=== PATIENT | male | born 1995 | race Caucasian/White ===

== ENCOUNTER 2025-04-19 18:49 | Emergency (ER) | payer MEDICAID ==
[~2025-04-19] VITALS: Ht 172.7 cm; Wt 63.5 kg
[2025-04-19 21:22] VITALS: TEMP 98.4
[2025-04-19] MEDS ORDERED: ONDANSETRON HCL/PF 4 MG/2 ML VIAL ONE (22:38)
[2025-04-19] MEDS ORDERED: DICYCLOMINE HCL 10 MG CAPSULE PO ONE (22:38)
[2025-04-19] MEDS: IV LR 1000 ML 1,000 ML IV ONE (22:45)
[2025-04-19] MEDS: DICYCLOMINE HCL 10 MG CAPSULE PO ONE (22:45)
[2025-04-19] MEDS: ONDANSETRON HCL/PF 4 MG/2 ML VIAL IVP ONE (22:45)
[2025-04-19 22:47] VITALS: BP 110/67; O2SAT 100
[2025-04-19 22:52] LABS: PLATELET COUNT (AUTO) 212 K/uL (150-450); RED BLOOD CELL COUNT(AUTO) 4.38 MIL/uL (4.5-6.0); RED CELL DISTRIBUTION WIDTH 13.4 % (11.5-15.0); WHITE BLOOD COUNT (AUTO) 5.7 K/uL (4.3-11.0)
[2025-04-19 22:57] LABS: CALCIUM, SERUM 8.7 mg/dL (8.5-10.1); CREATININE 0.8 mg/dL (0.6-1.3); SODIUM SERUM 144.0 mmol/L (136-145); UREA NITROGEN, BLOOD 11.0 mg/dL (7-18)
[2025-04-19 23:03] LABS: ASPARTATE AMINOTRANSFERASE 13.0 U/L (15-37); TOTAL PROTEIN, SERUM 7.5 g/dL (6.4-8.2)
[2025-04-19] MEDS ORDERED: ONDA-243 PO (23:50)
== END 2025-04-20 00:02 | disposition home or self-care (01) ==
LOC: ER 18:58
DX: K52.9 Noninfective gastroenteritis and colitis, unspecified (principal); R11.2 Nausea with vomiting, unspecified; Z91.048 Other nonmedicinal substance allergy status
CPT/HCPCS: 99284; 96374; 96361; 85025; 80048; 83690; 80076; 36415; J2405; J7120 ×2